=== PATIENT | male | born 1955 | race Asian ===

== ENCOUNTER 2019-10-27 12:03 | Inpatient (IN) | payer MEDICARE, MEDICAID ==
[~2019-10-27] VITALS: Ht 165.1 cm; Wt 81.2 kg
[2019-10-27] MEDS ORDERED: Insulin Human Regular 100units/ml 3ml IV ONE (12:15)
[2019-10-27] MEDS ORDERED: Calcium Gluconate 1gm/10ml vial IVP ONE (12:15)
--- NOTE | 2019-10-27 12:15 | NUR ---
ED Nurse Note: Pt was brought in by ambulance from a parked private vehicle d/t RT leg numbness and weakness since 399 today. Per pt, he feels that "his potassium is elevated" and stated, "this happened before". Pt has hx of ESRF, goes on dialysis every M,W,F, last dialysis was this monday. Pt is AOx4, calm and cooperative, uzbek in speaking but understands romansh. Placed on bed and gown; hooked to registered nurse cardiac telemetry
[2019-10-27 12:17] VITALS: BP 157/77
--- NOTE | 2019-10-27 12:21 | NUR ---
ED Nurse Note: x-ray at bedside.
--- NOTE | 2019-10-27 12:25 | NUR ---
ED Nurse Note: Accucheck taken; 412mg/dl, notified ERMD. Per ERMD hold D50 as of now.
--- NOTE | 2019-10-27 12:48 | Diagnostic Imaging Report ---
EXAM: XR Chest, 1 View CLINICAL HISTORY: CP TECHNIQUE: Frontal view of the chest. COMPARISON: No relevant prior studies available. FINDINGS: Lungs: Increased markings at the left lung base. Difficult to exclude atypical infection. Pleural space: Unremarkable. No pneumothorax. Heart: Unremarkable. No cardiomegaly. Mediastinum: Unremarkable. Bones/joints: Unremarkable. Other: Left axillary vascular stents IMPRESSION: Increased markings at the left lung base. Difficult to exclude atypical infection.
[2019-10-27 13:00] LABS: BASOPHILS % (AUTO) 1.2 % (0.0-2.0); EOSINOPHILS % (AUTO) 4.4 % (0.0-3.0); HEMATOCRIT 40.4 % (42.0-52.0); HEMOGLOBIN 12.7 G/DL (14.2-18.0); LYMPHOCYTES % (AUTO) 26.1 % (20.0-45.0); MEAN CORPUSCULAR VOLUME 98 FL (80-99); MONOCYTES % (AUTO) 8.7 % (1.0-10.0); NEUTROPHILS % (AUTO) 59.6 % (45.0-75.0); PLATELET COUNT 248 K/UL (150-450); RED BLOOD COUNT 4.11 M/UL (4.70-6.10); RED CELL DISTRIBUTION WIDTH 16.6 % (11.6-14.8); WHITE BLOOD COUNT 8.8 K/UL (4.8-10.8)
[2019-10-27 13:18] LABS: ALANINE AMINOTRANSFERASE 28 U/L (12-78); ALBUMIN 4.1 G/DL (3.4-5.0); ALKALINE PHOSPHATASE 104 U/L (46-116); ANION GAP 15 mmol/L (5-15); ASPARTATE AMINO TRANSFERASE 23 U/L (15-37); BILIRUBIN,TOTAL 0.4 MG/DL (0.2-1.0); BLOOD UREA NITROGEN 96 mg/dL (7-18); CALCIUM 9.1 MG/DL (8.5-10.1); CARBON DIOXIDE 22 MMOL/L (21-32); CHLORIDE 94 MMOL/L (98-107); CREATININE 11.6 MG/DL (0.55-1.30); SODIUM 132 MMOL/L (136-145)
[2019-10-27 13:22] LABS: POTASSIUM 7.4 MMOL/L (3.5-5.1)
[2019-10-27] MEDS ORDERED: GABAPENTIN100 MG ORAL (13:44)
[2019-10-27] MEDS ORDERED: LANTUS SOL100 UNIT/1 SUBQ (13:44)
[2019-10-27] MEDS ORDERED: AMLODIPINE BESY10 MG ORAL (13:44)
[2019-10-27] MEDS ORDERED: ZOFRAN4 M3 ORAL (13:44)
[2019-10-27] MEDS ORDERED: CALCIUM ACETAT667 M1 PO (13:44)
[2019-10-27] MEDS ORDERED: VITAMIN D210 MCG PO (13:44)
[2019-10-27] MEDS ORDERED: HUMALOG100 UNIT/4 SUBQ (13:44)
[2019-10-27] MEDS ORDERED: MICARDIS80 MG ORAL (13:44)
[2019-10-27] MEDS ORDERED: AMOXICILLIN500 MG ORAL (13:44)
[2019-10-27] MEDS ORDERED: PANTOPRAZOLE SO40 MG ORAL (13:44)
[2019-10-27] MEDS ORDERED: MEGESTROL ACETA40 MG PO (13:44)
--- NOTE | 2019-10-27 13:50 | NUR ---
ED Nurse Note: Accucheck taken 99mg/dl.
--- NOTE | 2019-10-27 14:42 | Emergency Room Report ---
History of Present Illness General Chief Complaint: Generalized Weakness Source: Patient, Family Member Present Illness HPI 64-year-old male presents the ED for numbness and tingling to the right leg. Palpitations. Symptoms started this morning. History of end-stage renal disease on dialysis. Gets dialysis Monday. States that he feels that his potassium is high and states that this is happened to him in the past. Denies chest pain or shortness of breath. Denies fevers or chills. No other aggravating relieving factors. Denies any other associated symptoms Allergies: Coded Allergies: No Known Allergies (Unverified , 10/27/19) COVID-19 Screening Contact w/high risk pt: No Recent Travel to affected area: No Experienced COVID-19 symptoms?: No COVID-19 Testing performed DENSITY CONTROL PUNCHER: No Patient History Past Medical History: renal disease, dialysis Past Surgical History: none Pertinent Family History: none Social History: Denies: smoking, alcohol use, drug use Immunizations: UTD Reviewed Nursing Documentation: PMH: Agreed; PSxH: Agreed Review of Systems All Other Systems: negative except mentioned in HPI Physical Exam Vital Signs Date Time Temp Pulse Resp B/P (MAP) Pulse Ox O2 Delivery O2 Flow Rate FiO2 10/27/19 11:59 98.2 98 16 157/77 (103) 98 Room Air Sp02 EP Interpretation: reviewed, normal General Appearance: no apparent distress, alert, GCS 15, non-toxic Head: normocephalic, atraumatic Eyes: bilateral eye normal inspection, bilateral eye PERRL ENT: hearing grossly normal, normal pharynx, no angioedema, normal voice Neck: full range of motion, supple/symm/no masses Respiratory: chest non-tender, lungs clear, normal breath sounds, speaking full sentences Cardiovascular #1: regular rate, rhythm, no edema Cardiovascular #2: 2+ carotid (R), 2+ carotid (L), 2+ radial (R), 2+ radial (L) , 2+ dorsalis pedis (R), 2+ dorsalis pedis (L) Gastrointestinal: normal bowel sounds, non tender, soft, non-distended, no guarding, no rebound Rectal: deferred Genitourinary: normal inspection, no CVA tenderness Musculoskeletal: back normal, normal range of motion, gait/station normal, non- tender Neurologic: alert, motor strength/tone normal, oriented x3, sensory intact, responsive, speech normal Psychiatric: judgement/insight normal, memory normal, mood/affect normal, no suicidal/homicidal ideation Reflexes: 3+ bicep (R), 3+ bicep (L), 3+ tricep (R), 3+ tricep (L), 3+ knee (R) , 3+ knee (L) Skin: other - See nursing notes Lymphatic: no adenopathy Procedures Critical Care Time Critical Care Time i. I feel this is a highly complex case requiring extensive working including EKG/Rhythm strip, Xray/CT/US, Blood/urine lab work, repeat exams while in ED, and administration of strong opiates/narcotics for pain control, admission to hospital or close patient follow up. Total time: 30 min bedside evaluation and treatment excludes procedures (EKG). Reason for critical care: hyperkalemia, ESRD Possible complications: hypotension, hypertension, ID, shock, arrhythmias, metabolic acidosis, end organ damage, respiratory failure. Interventions: labs, EKg, CXR, calcium, insulin, D50 Course: Patient presenting with palpitations, right leg numbness. History of end-stage renal disease on dialysis. EKG shows peaked T waves. Given insulin/ D50/calcium. K 7.4. Chest x-ray shows cardiomegaly. Consultations: nursing staff, EMS, family Performed by: Dr Lemons Tolerated well condition = serious j. because of unstable vital signs this patient had a condition that could potentially threaten life or limb. I feel this is a critical patient who required my full attention while patient was considered critical. Total Critical Care Time excluding procedures was greater than 35 minutes Medical Decision Making Diagnostic Impression: Primary Impression: Episode of generalized weakness Additional Impressions: Hyperkalemia ESRD (end stage renal disease) on dialysis ER Course Hospital Course 64-year-old male presents with palpitations and right leg numbness. History of end-stage renal disease Differential diagnoses include: ID/unstable angina, V. tach, bradycardia, hyperkalemia, fluid overload Clinical course Patient placed on stretcher. on awake overnight monitor. After initial history and physical I ordered labs, EKG, CXR EKG - peaked twaves Given calcium, insulin/D50 CXR - cardiomegaly labs reviewed- no leukocytosis, Hemoglobin/hematocrit normal, K 7.4, BUN/Cr 96/ 11.6, glucose 424, trop negative. Case discussed with Dr. Dubose and he agreed to accept the patient to his service for further care and support I. I feel this is a highly complex case requiring extensive working including EKG/Rhythm strip, Xray/CT/US, Blood/urine lab work, repeat exams while in ED, and administration of strong opiates/narcotics for pain control, admission to hospital or close patient follow up. Diagnosis - hyperkalemia, ESRD, hyperglycemia admitted to telemetry in serious condition Labs Test 10/27/19 12:17 10/27/19 12:24 10/27/19 13:56 White Blood Count 8.8 K/UL (4.8-10.8) Red Blood Count 4.11 M/UL (4.70-6.10) Hemoglobin 12.7 G/DL (14.2-18.0) Hematocrit 40.4 % (42.0-52.0) Mean Corpuscular Volume 98 FL (80-99) Mean Corpuscular Hemoglobin 30.9 PG (27.0-31.0) Mean Corpuscular Hemoglobin Concent 31.4 G/DL (32.0-36.0) Red Cell Distribution Width 16.6 % (11.6-14.8) Platelet Count 248 K/UL (150-450) Mean Platelet Volume 5.8 FL (6.5-10.1) Neutrophils (%) (Auto) 59.6 % (45.0-75.0) Lymphocytes (%) (Auto) 26.1 % (20.0-45.0) Monocytes (%) (Auto) 8.7 % (1.0-10.0) Eosinophils (%) (Auto) 4.4 % (0.0-3.0) Basophils (%) (Auto) 1.2 % (0.0-2.0) Sodium Level 132 MMOL/L (136-145) Potassium Level 7.4 MMOL/L (3.5-5.1) Chloride Level 94 MMOL/L (98-107) Carbon Dioxide Level 22 MMOL/L (21-32) Anion Gap 15 mmol/L (5-15) Blood Urea Nitrogen 96 mg/dL (7-18) Creatinine 11.6 MG/DL (0.55-1.30) Estimat Glomerular Filtration Rate 4.4 mL/min (>60) Glucose Level 424 MG/DL (74-106) Calcium Level 9.1 MG/DL (8.5-10.1) Total Bilirubin 0.4 MG/DL (0.2-1.0) Aspartate Amino Transf (AST/SGOT) 23 U/L (15-37) Alanine Aminotransferase (ALT/SGPT) 28 U/L (12-78) Alkaline Phosphatase 104 U/L (46-116) Troponin I 0.006 ng/mL (0.000-0.056) Pro-B-Type Natriuretic Peptide 66089 pg/mL (0-125) Total Protein 8.2 G/DL (6.4-8.2) Albumin 4.1 G/DL (3.4-5.0) Globulin 4.1 g/dL Albumin/Globulin Ratio 1.0 (1.0-2.7) POC Whole Blood Glucose 412 MG/DL (74-106) 89 MG/DL (74-106) EKG Diagnostic Results Rate: normal Rhythm: NSR ST Segments: other - peaked twaves ASA given to the pt in ED: No Rhythm Strip Diag. Results EP Interpretation: yes Rhythm: no PVC's, no ectopy Chest X-Ray Diagnostic Results Chest X-Ray Diagnostic Results : Chest X-Ray Ordered: Yes # of Views/Limited/Complete: 1 View Indication: Chest Pain EP Interpretation: Yes Interpretation: no pneumothorax, other Impression: Other - Cardiomegaly Electronically Signed by: Electronically signed by Oscar Lemons MD Last Vital Signs Date Time Temp Pulse Resp B/P (MAP) Pulse Ox O2 Delivery O2 Flow Rate FiO2 10/27/19 12:17 98 16 Room Air 10/27/19 12:17 98.2 157/77 98 Status: improved Disposition: ADMITTED INPATIENT Condition: Serious Referrals: NOT CHOSEN IPA/,REFERRING (PCP) Oscar Lemons MD Oct 27, 2019 14:42
--- NOTE | 2019-10-27 15:50 | NUR ---
TRANSFER TO TELEMETRY UNIT: Patient transferred to Telemetry Unit as ordered,per Dr. Dubose. Report given to DINA Dinh. Belongings and medications given to receiving nurse. Family and or S/O informed of transfer.
--- NOTE | 2019-10-27 16:39 | Consultation ---
Consult Note Consult Note I am asked to evaluate the patient at the request of Dr. Dubose for hyperkalemia and dialysis management. Patient is Kinyarwanda speaking. Patient seen in room 203. Data reviewed Patient examined Vital Signs Date Time Temp Pulse Resp B/P (MAP) Pulse Ox O2 Delivery O2 Flow Rate FiO2 10/27/19 11:59 98.2 98 16 157/77 (103) 98 Room Air Emergency room note: Chief Complaint: Generalized Weakness 64-year-old male presents the ED for numbness and tingling to the right leg. Palpitations. Symptoms started this morning. History of end-stage renal disease on dialysis. Gets dialysis Monday. States that he feels that his potassium is high and states that this is happened to him in the past. Denies chest pain or shortness of breath. Denies fevers or chills. No other aggravating relieving factors. Denies any other associated symptoms Allergies: No Known Allergies (Unverified , 10/27/19) COVID-19 Screening Contact w/high risk pt: No Recent Travel to affected area: No Experienced COVID-19 symptoms?: No COVID-19 Testing performed COMPLIANCE REPRESENTATIVE: No Past Medical History: renal disease, dialysis Sp02 EP Interpretation: reviewed, normal General Appearance: no apparent distress, alert, non-toxic Head: normocephalic, atraumatic Eyes: , bilateral eye PERRL ENT: hearing grossly normal, normal pharynx, no angioedema, normal voice Neck: full range of motion, supple/symm/no masses Respiratory: chest non-tender, lungs clear, normal breath sounds, speaking full sentences Cardiovascular #1: regular rate, rhythm, Cardiovascular #2: 2+ carotid (R), 2+ carotid (L), 2+ radial (R), 2+ radial (L) , 2+ dorsalis pedis (R), 2+ dorsalis pedis (L) Gastrointestinal: normal bowel sounds, non tender, soft, non-distended, no guarding, no rebound Rectal: deferred Genitourinary: normal inspection, no CVA tenderness Musculoskeletal: back normal, normal range of motion, gait/station normal, non- tender Neurologic: alert, motor strength/tone normal, oriented x3, sensory intact, responsive, speech normal Skin: other - See nursing notes Lymphatic: no adenopathy . Assessment/Plan End-stage renal disease on hemodialysis. Presents with hyperkalemia. Last dialysis 2 days ago. Patient have left upper arm fistula. Hemodialysis stat against 1 potassium bath ordered Monitor renal parameters, and electrolytes Keep the blood pressure and blood sugar in check Renal diet when patient can eat Per orders Hans Webb MD Oct 27, 2019 16:39
[2019-10-27] MEDS ORDERED: Sodium Polystyrene Sulfonate 15gm Powder ORAL SCH (16:45)
[2019-10-27] MEDS ORDERED: Docusate 100mg cap ORAL SCH (18:00)
--- NOTE | 2019-10-27 19:25 | NUR ---
HAND-OFF: Report given to Lucy Johns RN. Patient awake and alert x 4, in room 207 for Hemodialysis and will return to room 403 after hemodialysis. On room air, no c/o pain, no SOB, bed in lowest position, call light within reach, in no apparent distress.
--- NOTE | 2019-10-27 19:25 | NUR ---
NURSE NOTES: Received hand-off report from Aj Grier RN. Patient in bed resting, in no acute distress. Receiving dialysis with the supervision of DINA Torres.
[2019-10-27 20:00] VITALS: BP 155/83
[2019-10-27] MEDS ORDERED: NovoLOG Insulin Flexpen SUBQ SCH (21:00)
--- NOTE | 2019-10-27 21:20 | NUR ---
NURSE NOTES: Made couple attempts to reach Dr. Dubose via telephone regarding patient leaving AMA.
--- NOTE | 2019-10-27 21:25 | NUR ---
Patient signed AMA form despite patient education. Patient cardiac leads were removed and ekg monitor tech removed and cleaned. monitoring coordinator given to Ortiz ibarra. Patient was then transported via wheelchair to the private vehicle safely. Patient was discharged 21:25.
--- NOTE | 2019-10-27 21:25 | NUR ---
NURSE NOTES: Patient blood glucose level was 229, novolog was given per doctor's orders (4units). Patient vital signs stable: BP: 155/83, SpO2: 99%, RR: 16, T: 97.2. Patient signed AMA form patient education. All of patient belongings was accounted for in front of patient, after verifying all items were accounted for, patient went ahead and signed the patient belongings list. IV was discontinued, IV site is intact, no redness, no tenderness, no pain, no leaking and gauze and tape was applied to site. Patient ID band was taken off and discarded in shredder,
--- NOTE | 2019-10-27 21:30 | NUR ---
NURSE NOTES: Left voicemail to Dr. Dubose regarding patient leaving AMA.
--- NOTE | 2019-10-27 22:08 | NUR ---
NURSE NOTES: Texted Dr. Dubose regarding patient leaving AMA, and informed him that the patient signed the AMA form.
--- NOTE | 2019-10-28 03:15 | History and Physical Report ---
DATE OF ADMISSION: 10/27/2019 The patient left AMA before I could see the patient, so I cannot dictate an H and P. The patient came in on the same date that admitted, left against medical advice. Signed the form. The patient nurse was not familiar with the area and wanted to be discharged, so I cannot do any dictation because the patient left a couple of hours from the admission and left against medical advice. The patient originally came in to be admitted for hyperkalemia, end-stage renal disease, on dialysis and palpitation. EKG showed peaked great T-waves and also hyperglycemia. I had consulted Dr. Webb, Dr. Resendez, Dr. Feng Andrade, Dr. Espino; however, the patient left against medical advice, so we cannot dictate a full H and P for that reason. Peace Dubose M.D. DR: PADILLA JOB#: [id number] CC:
--- NOTE | 2019-10-28 15:02 | Discharge Summary ---
Discharge Summary Discharge Summary _ DATE OF ADMISSION: 10/27/2019 DATE OF DISCHARGE: 10/27/2019 Patient left AGAINST MEDICAL ADVICE REASON FOR ADMISSION: 64 years old male with past medical history of end-stage renal disease, on hemodialysis, diabetes mellitus, hypertension, presented to emergency department for evaluation due to numbness and tingling in his right leg and palpitations. Symptoms started early in the morning. Patient reported that he had similar symptoms in the past , when his potassium was high. He had dialysis 2 days ago. He denied chest pain or shortness of breath. He denied fever or chills. Upon evaluation vital signs were stable. Laboratory work-up revealed no leukocytosis, hemoglobin 12.7, hematocrit 40.4, platelet count 248. Sodium 132, potassium 7.4, chloride 94. BUN 96, creatinine 11.6. Glucose 424. Anion gap 15. Troponin 0.006, pro BNP 93178. EKG revealed peaked T waves with sinus rhythm. Chest x-ray revealed cardiomegaly, but no acute cardiopulmonary abnormality. In emergency department hyperkalemia was treated: patient received calcium , insulin and dextrose as well as Kayexalate and admitted for further management. CONSULTANTS: job counselor Dr. Webb [facility] COURSE: Patient admitted to telemetry floor. Veterinary Toxicologist seen and evaluated patient and ordered stat hemodialysis. Patient had left upper extremity fistula. Diabetic renal diet was provided. Blood pressure was managed with calcium channel suze. Blood sugar was managed with sliding scale of insulin. GI prophylaxis provided. In few hours patient decided to leave AGAINST MEDICAL ADVICE. The risks and consequences of signing AGAINST MEDICAL ADVICE were discussed with patient in detail. Patient verbalized understanding, nevertheless signed AMA form and left. FINAL DIAGNOSES: Hyperkalemia End-stage renal disease, on hemodialysis Hypertension Diabetes mellitus with hyperglycemia I have been assigned to dictate discharge summary for this account. I was not involved in the patient's management. Janie Ashton NP Oct 28, 2019 15:02
== END 2019-10-27 21:25 | disposition left against medical advice (07) | DRG 640 ==
LOC: EDBD 12:03 → EMR 13:51 → EDBEDREQ 15:21 → 2E 15:34
PROC: 5A1D70Z Performance of Urinary Filtration, Intermittent, Less than 6 Hours Per Day (ICD-10-PCS; principal; 2019-10-27)
DX: E87.5 Hyperkalemia (principal); N18.6 End stage renal disease; I12.0 Hypertensive chronic kidney disease with stage 5 chronic kidney disease or end stage renal disease; E11.22 Type 2 diabetes mellitus with diabetic chronic kidney disease; Z99.2 Dependence on renal dialysis; E11.65 Type 2 diabetes mellitus with hyperglycemia
CPT/HCPCS: 36415; 71045; 80053; 82962; 83880; 84484; 85025; 87081; 93005; 96374; 96375; 99291; J1815